=== PATIENT | male | born 2000 | race Caucasian/White ===

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

== ENCOUNTER 2022-12-20 08:20 | Emergency (ER) | payer OTHER ==
[~2022-12-20] VITALS: Ht 182.9 cm; Wt 85.9 kg
[2022-12-20] MEDS ORDERED: LIDOCAINE 1% MDV 20ML VIAL SC ONE (08:45)
[2022-12-20 09:25] VITALS: BP 144/76; TEMP 98; O2SAT 97
[2022-12-20] MEDS ORDERED: BOOSTRIX VACCINE (TETANUS/DIPHTH/ACEL. PERTUSSIS) 0.5ML SYR IM ONE (09:35)
== END 2022-12-20 09:35 | disposition home or self-care (01) ==
LOC: M ED 08:20
DX: S61.512A Laceration without foreign body of left wrist, initial encounter (principal); W26.0XXA Contact with knife, initial encounter; Y99.0 Civilian activity done for income or pay; F17.200 Nicotine dependence, unspecified, uncomplicated

== ENCOUNTER → 2024-03-05 | Outpatient (REF) | LOC: M EMP 09:52 | PROVIDERS: ATTEND Family Medicine | DX: Z11.52 Encounter for screening for COVID-19 (principal) ==